=== PATIENT | female | born 1970 | race Caucasian/White ===

== ENCOUNTER 2019-01-03 18:33 | Emergency (ER) | payer OTHER ==
[~2019-01-03] VITALS: Ht 157.5 cm; Wt 98.9 kg
[2019-01-03] MEDS ORDERED: SYNTHROID137 MC1 PO (19:01)
[2019-01-03] MEDS ORDERED: HYDROCHLOROTH12.5 M1 PO (19:02)
[2019-01-03 19:32] LABS: URINE BILIRUBIN NEGATIVE (Negative); URINE BLOOD NEGATIVE (Negative); URINE CLARITY CLEAR; URINE COLOR YELLOW; URINE GLUCOSE-RANDOM NEGATIVE (Negative); URINE KETONES NEGATIVE (Negative); URINE LEUKOCYTES-REFLEX NEGATIVE (Negative); URINE NITRITE-REFLEX NEGATIVE (Negative); URINE PROTEIN NEGATIVE (Negative); URINE SPECIFIC GRAVITY 1.015 (1.005-1.030); URINE UROBILINOGEN 0.2 E.U./dl (0.2-1.0)
[2019-01-03 19:38] LABS: ABSOLUTE BASOPHILS 0.1 thou/uL (0.0-0.2); ABSOLUTE LYMPHOCYTES 2.4 thou/uL (0.8-5.3); ABSOLUTE NEUTROPHILS 7.1 thou/uL (1.6-8.1); BASOPHILS 0.9 %; EOSINOPHILS 0.1 %; HEMOGLOBIN 12.7 gm/dL (12.0-15.0); LYMPHOCYTES 22.5 %; MCH 28.9 pg (26.0-34.0); MCHC 34.2 g/dL (28.0-37.0); MCV 84.6 fL (80.0-100.0); MONOCYTES 9.3 %; MPV 9.2 fl. (7.2-11.1); NUCLEATED RBCS 0 /100WBC; PLATELET COUNT* 236 thou/uL (150-400); POLYS 67.2 %; RBC 4.38 mil/uL (4.20-5.00); RDW-CV 15.2 % (10.5-14.5); WBC 10.6 thou/uL (4.0-11.0)
[2019-01-03 19:51] LABS: CALCIUM 9.5 mg/dL (8.5-10.1)
[2019-01-03 19:55] LABS: ALBUMIN 3.9 g/dL (3.4-5.0); TOTAL BILIRUBIN 0.3 mg/dL (<0.1-1.0); TOTAL PROTEIN 7.6 g/dL (6.4-8.2)
[2019-01-03 21:48] VITALS: BP 128/79
== END 2019-01-03 21:48 | disposition home or self-care (01) ==
LOC: M.ERS 18:33
PROVIDERS: Nurse Practitioner Family
DX: R10.32 Left lower quadrant pain (principal); I10 Essential (primary) hypertension; E03.9 Hypothyroidism, unspecified; Z90.89 Acquired absence of other organs